=== PATIENT | male | born 1960 | race Caucasian/White ===

== ENCOUNTER → 2016-05-28 | Day surgery (SDC) | payer BC ==
[2016-05-19 13:27] VITALS: Ht 182.9 cm; Wt 81.8 kg
[~2016-05-28] VITALS: Ht 182.9 cm; Wt 81.8 kg
[~2016-05-28] MED LIST: ACET-1256 PO; ASPCH81X PO; ASPEC81 PO; BUPR200T2 PO; EpHEDrine SULFATE 50MG/5ML SYR ONE; FURO-85 PO; LIDOCAINE HCL 2% 2 ML VIAL (20MG/ML) ONE; NADO20TA PO; PHENYLEPHRINE 100MCG/ML 5ML SYR ONE; PROPOFOL IV EMULSION 10 MG/ML 20 ML VIAL IV ONE; SIMV40TA2 PO; SODIUM CHLORIDE 0.9% 500ML 500 ML IV ONE
--- NOTE | 2016-05-28 10:16 | Endo History and Physical ---
History & Physical Date of Service: May 28, 2016. Chief Complaint: ESOPHAGEAL VARICES Referring Physician: DR. JERRI FRAUSTO History of Present Illness hx of varices for EGD Past Surgical History Hx Cardiac Surgery: No Hx Internal Defibrillator: No Hx Pacemaker: No Hx Abdominal Surgery: No Hx Post-Op Nausea and Vomiting: No Hx Cancer Surgery: No Hx Thoracic Surgery: No Hx Orthopedic: Yes (DECOMPRESSION FUSION L2-3) Hx Urinary Tract Surgery: No Family History Colon CA Social History Smoking Status: Never Smoker Hx Substance Use: No Hx Alcohol Use: No Allergies Coded Allergies: No Known Allergies (Verified , 05/28/16) Current Medications Reported Home Medications Medications Dose Route/Sig Max Daily Dose Days Date Category Tylenol (Acetaminophen) 500 Mg Tab 500 Mg PO DIRECTED 02/18/16 Reported Lasix (Furosemide) 20 Mg Tab 20 Mg PO BID 02/18/16 Reported Corgard (Nadolol) 20 Mg Tab 20 Mg PO BID 02/18/16 Reported Ecotrin Or Generic * (Aspirin) 81 Mg Ectab 81 Mg PO QAM 07/28/08 Reported Zocor (Simvastatin) 40 Mg Tab 40 Mg PO QPM 07/28/08 Reported Wellbutrin Sr (Bupropion HCl) 200 Mg Ertab 200 Mg PO BID 07/28/08 Reported Vital Signs Weight (Kilograms): 81.82 Height (Feet): 6 Height (Inches): 0 Date Time Temp Pulse Resp B/P Pulse Ox O2 Delivery O2 Flow Rate FiO2 05/28/16 10:00 36.7 63 18 118/66 97 Room Air Physical Exam General Appearance: no apparent distress Respiratory/Chest: Auscultation: no wheezing Cardiovascular: Heart Auscultation: RRR Abdomen: Inspection & Palpation: soft, no masses Assessment and Plan stable for EGD
--- NOTE | 2016-05-28 11:04 | GI REPORT ---
Procedure Date: 05/28/2016 10:07 AM Procedure: Upper GI endoscopy Indications: Follow-up of esophageal varices Medicines: See the Anesthesia note for documentation of the administered medications Complications: No immediate complications. Estimated Blood Loss: Estimated blood loss: none. Procedure: Pre-Anesthesia Assessment: - Prior to the procedure, a History and Physical was performed, and patient medications, allergies and sensitivities were reviewed. The patient's tolerance of previous anesthesia was reviewed. - The risks and benefits of the procedure and the sedation options and risks were discussed with the patient. All questions were answered and informed consent was obtained. - Patient identification and proposed procedure were verified prior to the procedure by the physician and the nurse. The procedure was verified in the pre-procedure area. - Pre-procedure physical examination revealed no contraindications to sedation. - After reviewing the risks and benefits, the patient was deemed in satisfactory condition to undergo the procedure. After obtaining informed consent, the endoscope was passed under direct vision. Throughout the procedure, the patient's blood pressure, pulse, and oxygen saturations were monitored continuously. The scope was introduced through the mouth, and advanced to the third part of duodenum. The upper GI endoscopy was accomplished without difficulty. The patient tolerated the procedure well. Findings: Grade I varices were found in the lower third of the esophagus. A small post variceal banding scar was found in the lower third of the esophagus. The stomach had mild portal gastropathy. The cardia and gastric fundus were normal on retroflexion. Impression: - Grade I esophageal varices. - A few scars in the lower third of the esophagus from prior banding. - Mild portal gastropathy. - No specimens collected. Recommendation: - Repeat the upper endoscopy in 6 months for surveillance. - Discharge patient to home. Gilles Chaney M.D. Gilles Chaney MD 05/28/2016 11:03:52 AM This report has been signed electronically. Note Initiated On: 05/28/2016 10:07 AM
[2016-05-28 11:05] VITALS: BP 111/59; PULSE 62; O2SAT 99
--- NOTE | 2016-05-28 11:05 | Discharge Instructions ---
Endoscopy Patient Instructions Date / Procedure(s) Performed May 28, 2016. EGD Allergy Information Coded Allergies: No Known Allergies (Verified , 05/28/16) Discharge Date / Findings May 28, 2016. Grade I varices with no bleeding. Medication Instructions Stopped Medication(s): PT LAST TOOK 81MG OF ASPIRIN 6 MONTHS AGO. Provider Instructions Activity Restrictions - No exercising or heavy lifting for 24 hours. - Do not drink alcohol the day of the procedure. - Do not drive a car or operate machinery until the day after the procedure. - Do not make any important decisions or sign important papers in 24 hours after the procedure. Following Day: - Return to full activity which may include returning to work/school. Diet Start your diet with liquids and light foods (jello, soup, juice, toast). Then eat your usual diet if not nauseated. Treatment For Common After Affects For mild abdominal pain, bloating, or excessive gas: - Rest - Eat lightly - Lie on right side Follow-Up Information Follow-up with DR. JERRI FRAUSTO as scheduled Anesthesia Information What You Should Know You have had a procedure that required some medicine to reduce anxiety and discomfort. This treatment is called moderate sedation. After receiving the treatment, you may be sleepy, but you will be able to breathe on your own. The effects of the treatment may last for several hours. Follow these instructions along with Activity/Diet recommendations noted above: * Do NOT do anything where dizziness or clumsiness would be dangerous. * Rest quietly at home today, then you can be up and about tomorrow. * Have a responsible person stay with you the rest of today. * You may have had an I.V. today. If so, you may take the dressing off later today. Recommendations Call your doctor if: * Trouble breathing * Continuous vomiting for more than 24 hours * Temperature above 101 degrees * Severe abdominal pain or bloating * Pain not relieved by pain medicine ordered * There is increased drainage or redness from any incision * A large amount of rectal bleeding greater than 2-3 tablespoons. (If you had a polyp/s removed or have hemorrhoids, a small amount of blood - from the rectum is to be expected.) * You have any unanswered questions or concerns. IN THE EVENT OF A SERIOUS EMERGENCY, GO TO THE NEAREST EMERGENCY ROOM Your discharge instructions were prepared by provider Gilles Chaney. Patient Instructions Signature Page Néstor Gallego Patient (or Guardian) Signature/Date: I have read and understand the instructions given to me by my caregivers. Caregiver/RN/Doctor Signature/Date: The above-named patient and/or guardian has received patient instructions on this date. + Original Patient Signature Page (only) stays with chart. Please make copy for patient.
--- NOTE | 2016-05-28 11:07 | Anesthesiology Progress Note ---
Anesthesia Post Op Note Date & Time May 28, 2016 at 11:07 Vital Signs Pain Intensity: 0 Vital Signs Past 12 Hours Date Time Temp Pulse Resp B/P Pulse Ox O2 Delivery O2 Flow Rate FiO2 05/28/16 10:54 62 18 107/58 99 Room Air 05/28/16 10:46 63 18 95/38 99 Room Air 05/28/16 10:36 64 18 111/53 99 Room Air 05/28/16 10:00 36.7 63 18 118/66 97 Room Air Notes Mental Status: alert / awake / arousable, participated in evaluation Pt Amnestic to Procedure: Yes Nausea / Vomiting: adequately controlled Pain: adequately controlled Airway Patency, RR, SpO2: stable & adequate BP & HR: stable & adequate Hydration State: stable & adequate Anesthetic Complications: no major complications apparent
== END | disposition home or self-care (01) ==
LOC: C.GI 09:45
PROVIDERS: ATTEND Internal Medicine Gastroenterology
DX: I85.00 Esophageal varices without bleeding (principal); Z80.0 Family history of malignant neoplasm of digestive organs; E11.9 Type 2 diabetes mellitus without complications; K31.89 Other diseases of stomach and duodenum

== ENCOUNTER → 2017-02-11 | Day surgery (SDC) | payer BC ==
[2017-02-01 07:38] VITALS: BMI 24.0
[~2017-02-11] VITALS: Ht 185.4 cm; Wt 84.1 kg
[~2017-02-11] MED LIST changes: -ACET-1256 PO; -ASPEC81 PO; -EpHEDrine SULFATE 50MG/5ML SYR ONE; +FENTANYL CITRATE INJ 50 MCG/1 ML 2 ML VIAL ONE; -PHENYLEPHRINE 100MCG/ML 5ML SYR ONE; -SODIUM CHLORIDE 0.9% 500ML 500 ML IV ONE
--- NOTE | 2017-02-11 09:45 | Endo History and Physical ---
History & Physical Date of Service: Feb 11, 2017. Chief Complaint: varices surveillance Referring Physician: Dr. Rock History of Present Illness vrices surveillance Past Surgical History Hx Cardiac Surgery: No Hx Internal Defibrillator: No Hx Pacemaker: No Hx Abdominal Surgery: No Hx Post-Op Nausea and Vomiting: No Hx Cancer Surgery: No Hx Thoracic Surgery: No Hx Orthopedic: Yes (DECOMPRESSION FUSION L2-3) Hx Urinary Tract Surgery: No Family History Colon CA Social History Smoking Status: Never Smoker Hx Substance Use: No Hx Alcohol Use: No Allergies Coded Allergies: No Known Allergies (Verified , 02/01/17) Current Medications Reported Home Medications Medications Dose Route/Sig Max Daily Dose Days Date Category Lasix (Furosemide) 20 Mg Tab 20 Mg PO DAILY PRN 02/01/17 Reported Aspirin Chewable (Aspirin) 81 Mg Chew 81 Mg PO QAM 02/01/17 Reported Corgard (Nadolol) 20 Mg Tab 20 Mg PO BID 02/18/16 Reported Zocor (Simvastatin) 40 Mg Tab 40 Mg PO QPM 07/28/08 Reported Wellbutrin Sr (Bupropion HCl) 200 Mg Ertab 200 Mg PO BID 07/28/08 Reported Vital Signs Weight (Kilograms): 84.09 Height (Feet): 6 Height (Inches): 1 Physical Exam General Appearance: WD/WN, no apparent distress Assessment and Plan EGD today
[2017-02-11 09:46] VITALS: Ht 185.4 cm; Wt 84.1 kg
--- NOTE | 2017-02-11 10:13 | Discharge Instructions ---
Endoscopy Patient Instructions Date / Procedure(s) Performed Feb 11, 2017. EGD Allergy Information Coded Allergies: No Known Allergies (Verified , 02/01/17) Discharge Date / Findings Feb 11, 2017. small varices, portal hypertensive gastropathy, gastritis and duodenitis Medication Instructions Restart Stopped Medication(s): OK to resume home medications. Limit the use of anti-inflammatory medications Provider Instructions Activity Restrictions - No exercising or heavy lifting for 24 hours. - Do not drink alcohol the day of the procedure. - Do not drive a car or operate machinery until the day after the procedure. - Do not make any important decisions or sign important papers in 24 hours after the procedure. Following Day: - Return to full activity which may include returning to work/school. Diet Start your diet with liquids and light foods (jello, soup, juice, toast). Then eat your usual diet if not nauseated. Treatment For Common After Affects For mild abdominal pain, bloating, or excessive gas: - Rest - Eat lightly - Lie on right side Follow-Up Information Follow-up with DR. JERRI FRAUSTO as scheduled Anesthesia Information What You Should Know You have had a procedure that required some medicine to reduce anxiety and discomfort. This treatment is called moderate sedation. After receiving the treatment, you may be sleepy, but you will be able to breathe on your own. The effects of the treatment may last for several hours. Follow these instructions along with Activity/Diet recommendations noted above: * Do NOT do anything where dizziness or clumsiness would be dangerous. * Rest quietly at home today, then you can be up and about tomorrow. * Have a responsible person stay with you the rest of today. * You may have had an I.V. today. If so, you may take the dressing off later today. Recommendations Call your doctor if: * Trouble breathing * Continuous vomiting for more than 24 hours * Temperature above 101 degrees * Severe abdominal pain or bloating * Pain not relieved by pain medicine ordered * There is increased drainage or redness from any incision * A large amount of rectal bleeding greater than 2-3 tablespoons. (If you had a polyp/s removed or have hemorrhoids, a small amount of blood - from the rectum is to be expected.) * You have any unanswered questions or concerns. IN THE EVENT OF A SERIOUS EMERGENCY, GO TO THE NEAREST EMERGENCY ROOM Your discharge instructions were prepared by provider Ayde Culp. Patient Instructions Signature Page Nésotr Millernuvia Patient (or Guardian) Signature/Date: I have read and understand the instructions given to me by my caregivers. Caregiver/RN/Doctor Signature/Date: The above-named patient and/or guardian has received patient instructions on this date. + Original Patient Signature Page (only) stays with chart. Please make copy for patient.
--- NOTE | 2017-02-11 10:19 | GI REPORT ---
Procedure Date: 02/11/2017 10:03 AM Procedure: Upper GI endoscopy Indications: Follow-up of esophageal varices Medicines: Propofol per Anesthesia Complications: No immediate complications. Estimated blood loss: None. Estimated Blood Loss: Estimated blood loss: none. Procedure: Pre-Anesthesia Assessment: - Prior to the procedure, a History and Physical was performed, and patient medications, allergies and sensitivities were reviewed. The patient's tolerance of previous anesthesia was reviewed. - The risks and benefits of the procedure and the sedation options and risks were discussed with the patient. All questions were answered and informed consent was obtained. - Patient identification and proposed procedure were verified prior to the procedure by the physician and the nurse. The procedure was verified in the pre-procedure area in the procedure room. - Mental Status Examination: alert and oriented. Airway Examination: normal oropharyngeal airway and neck mobility. Respiratory Examination: clear to auscultation. CV Examination: normal. Abdominal Examination: bowel sounds present, abdomen soft and non-tender, no masses or organomegaly noted. - ASA Grade Assessment: III - A patient with severe systemic disease. After obtaining informed consent, the endoscope was passed under direct vision. Throughout the procedure, the patient's blood pressure, pulse, and oxygen saturations were monitored continuously. The scope was introduced through the mouth, and advanced to the second part of duodenum. The upper GI endoscopy was accomplished without difficulty. The patient tolerated the procedure well. The upper GI endoscopy was accomplished without difficulty. The patient tolerated the procedure well. Findings: Grade I varices were found in the lower third of the esophagus. Mild portal hypertensive gastropathy was found in the entire examined stomach. Mild inflammation characterized by erythema was found in the gastric antrum. A few erosions without bleeding were found in the duodenal bulb. The 2nd part of the duodenum was normal. Impression: - Grade I esophageal varices. - Portal hypertensive gastropathy. - Mild gastritis. - Duodenal erosions without bleeding. - Normal 2nd part of the duodenum. - No specimens collected. Recommendation: - Continue present medications. - No ibuprofen, naproxen, or other non-steroidal anti-inflammatory drugs. - Repeat the upper endoscopy in 1 year for surveillance. - Return to primary care physician as previously scheduled. - Discharge patient to home. Ayde Culp D.O. Ayde Culp DO 02/11/2017 10:18:38 AM This report has been signed electronically. Note Initiated On: 02/11/2017 10:03 AM I attest to the content of the Intraoperative Record and orders documented therein, exceptions below
[2017-02-11 10:46] VITALS: BP 107/65; PULSE 64; O2SAT 98
--- NOTE | 2017-02-11 10:48 | Anesthesiology Progress Note ---
Anesthesia Post Op Note Date & Time Feb 11, 2017 at 10:48 Vital Signs Pain Intensity: 0 Vital Signs Past 12 Hours Date Time Temp Pulse Resp B/P (MAP) Pulse Ox O2 Delivery O2 Flow Rate FiO2 02/11/17 10:31 70 16 126/67 (86) 98 Room Air 02/11/17 10:16 69 12 97/57 (70) 99 Room Air 02/11/17 09:49 36.4 66 18 119/67 (84) 100 Room Air Notes Mental Status: alert / awake / arousable, participated in evaluation Pt Amnestic to Procedure: Yes Nausea / Vomiting: adequately controlled Pain: adequately controlled Airway Patency, RR, SpO2: stable & adequate BP & HR: stable & adequate Hydration State: stable & adequate Anesthetic Complications: no major complications apparent
== END | disposition home or self-care (01) ==
LOC: C.GI 09:10
PROVIDERS: ATTEND Internal Medicine
DX: Z09 Encounter for follow-up examination after completed treatment for conditions other than malignant neoplasm (principal); I85.00 Esophageal varices without bleeding; K31.89 Other diseases of stomach and duodenum; K29.70 Gastritis, unspecified, without bleeding; K74.60 Unspecified cirrhosis of liver; K75.81 Nonalcoholic steatohepatitis (NASH); E11.9 Type 2 diabetes mellitus without complications